=== PATIENT | female | born 1970 ===

== ENCOUNTER 2017-07-30 17:27 | Observation (INO) | payer SELFPAY ==
--- NOTE | 2017-07-30 17:45 | ED PDOC ---
Arrival/HPI <Samuel Henderson - Last Filed: 07/30/17 18:59> <Rowan Chadwick - Last Filed: 07/30/17 19:06> - General Chief Complaint: Abdominal Pain Time Seen by Provider: 07/30/17 17:29 - History of Present Illness Narrative History of Present Illness (Text): Batsheva is a 46 year old female with a past medical history of nephrolithiasis who presents to the emergency room for evaluation and treatment of abdominal pain, nausea, and vomiting which began 1 hour ago with no specific provoking event. States the pain originated in the left and right lower quadrants and radiates to the pubis. Characterizes the pain as being sharp in nature and is rated a 10/10. Denies fever, chills, chest pain, shortness of breath, diarrhea, constipation, and urinary symptoms. 07/30/17 17:46 (Samuel Henderson) Past Medical History - Provider Review Nursing Documentation Reviewed: Yes - Travel History Have you recently traveled outside [place] w/in the past 3 mons?: No - Cardiac Hx Cardiac Disorders: No - Pulmonary Hx Respiratory Disorders: No - Neurological Hx Neurological Disorder: No - HEENT Hx HEENT Disorder: No - Renal Hx Kidney Stones: Yes - Endocrine/Metabolic Hx Endocrine Disorders: No - Hematological/Oncological Hx Blood Disorders: No - Integumentary Hx Dermatological Disorder: No - Musculoskeletal/Rheumatological Hx Musculoskeletal Disorders: No - Gastrointestinal Hx Gastrointestinal Disorders: No - Genitourinary/Gynecological Hx Genitourinary Disorders: No - Psychiatric Hx Psychophysiologic Disorder: No - Past Surgical History Past Surgical History: Non-Contributing <Samuel Henderson - Last Filed: 07/30/17 18:59> Family/Social History - Physician Review Nursing Documentation Reviewed: Yes Family/Social History: Unknown Family HX Smoking Status: Never Smoked Hx Alcohol Use: No Hx Substance Use: No <Samuel Henderson - Last Filed: 07/30/17 18:59> Allergies/Home Meds <Samuel Henderson - Last Filed: 07/30/17 18:59> <Rowan Chadwick - Last Filed: 07/30/17 19:06> Allergies/Adverse Reactions: Allergies No Known Allergies Allergy (Verified 07/30/17 17:54) Review of Systems - Physician Review All systems were reviewed & negative as marked: Yes - Review of Systems Constitutional: Normal Eyes: Normal ENT: Normal Respiratory: Normal Cardiovascular: Normal Gastrointestinal: Abdominal Pain (right lower and left lower quadrants), Nausea , Vomiting. absent: Diarrhea Genitourinary Female: Normal Musculoskeletal: Normal Skin: Normal Neurological: Normal Endocrine: Normal Hemo/Lymphatic: Normal Psychiatric: Normal <Samuel Henderson - Last Filed: 07/30/17 18:59> Physical Exam Vital Signs Reviewed: Yes Temperature: Afebrile Blood Pressure: Hypertensive Pulse: Regular Respiratory Rate: Normal Appearance: Positive for: Well-Appearing, Non-Toxic, Comfortable Pain Distress: None Mental Status: Positive for: Alert and Oriented X 3 - Systems Exam Head: Present: Atraumatic, Normocephalic Pupils: Present: PERRL Extroacular Muscles: Present: EOMI Conjunctiva: Present: Normal Mouth: Present: Moist Mucous Membranes Pharnyx: Present: Normal Nose (External): Present: Atraumatic Respiratory/Chest: Present: Clear to Auscultation Cardiovascular: Present: Regular Rate and Rhythm Abdomen: Present: Tenderness, Normal Bowel Sounds, Other (negative garcia's sign ). No: Distention, Peritoneal Signs, Rebound, Guarding, McBurney's Point Tender Upper Extremity: Present: Normal Inspection Lower Extremity: Present: Normal Inspection Neurological: Present: GCS=15, Speech Normal, Motor Func Grossly Intact, Normal Sensory Function, Normal Cerebellar Funct Skin: Present: Warm, Dry, Normal Color Psychiatric: Present: Alert, Oriented x 3, Normal Insight, Normal Concentration <Samuel Henderson - Last Filed: 07/30/17 18:59> Vital Signs Temp Pulse Resp BP Pulse Ox 07/30/17 17:35 98.0 F 90 18 160/91 H 95 Medical Decision Making <Samuel Henderson - Last Filed: 07/30/17 18:59> - Transfer of Care Patient signed out to Dr:: Ron Pending Radiology Studies:: CT abd/pelvis <Rowan Chadwick - Last Filed: 07/30/17 19:06> ED Course and Treatment: Assessment and Plan: Patent is a 46 year old female with a past medical history of nephrolithiasis who presents to the emergency room for evaluation and treatment of abdominal pain, nausea, and vomiting. Abdominal Pain Nausea/Vomiting 07/30/17 18:10 - CBC, CMP, Mag, Phos - Zofran - Toradol - CT abd/pelvis IV contrast - IVF NS 500cc bolus - UA - Hcg 07/30/17 18:59 - awaiting labs and imaging results - patient clinically improved- resting - patient case endorsed to swing shift attending (Samuel Henderson) - Lab Interpretations Lab Results: 07/30/17 18:24 Lab Results 07/30/17 18:24: WBC 8.9, RBC 4.51, Hgb 13.7, Hct 40.2, MCV 89.1, MCH 30.4, MCHC 34.1, RDW 13.0, Plt Count 196, MPV 10.8, Gran % 83.1 H, Lymph % (Auto) 13.6 L, [place] % (Auto) 2.7, Eos % (Auto) 0.4 L, Baso % (Auto) 0.2, Gran # 7.41 H, Lymph # (Auto) 1.2, [place] # (Auto) 0.2, Eos # (Auto) 0.0, Baso # (Auto) 0.02 - RAD Interpretation Radiology Orders: 07/30/17 17:55 ABD & PELVIS IV CONTRAST ONLY [CT] Stat - Medication Orders Current Medication Orders: Discontinued Medications Sodium Chloride (Sodium Chloride 0.9%) 500 mls @ 1,000 mls/hr IV .Q30M STA Stop: 07/30/17 18:23 Last Admin: 07/30/17 18:08 Dose: 1,000 mls/hr eMAR Start Stop Document 07/30/17 18:08 EQ (Rec: 07/30/17 18:[address] [id number]) Intravenous Solution Start Date 07/30/17 Start Time 18:08 Ketorolac Tromethamine (Toradol) 30 mg IVP STAT STA Stop: 07/30/17 17:55 Last Admin: 07/30/17 18:09 Dose: 30 mg MAR Pain Assessment Document 07/30/17 18:09 EQ (Rec: 07/30/17 18:[address] [id number] Pain Reassessment Is this a pain reassessment? No Sleep Is patient sleeping during reassessment? No Presence of Pain Presence of Pain Yes IVP Administration Document 07/30/17 18:09 EQ (Rec: 07/30/17 18:[address] [id number]) Charges for Administration # of IVP Administrations 1 Ondansetron HCl (Zofran Inj) 4 mg IVP STAT STA Stop: 07/30/17 17:55 Last Admin: 07/30/17 18:09 Dose: 4 mg IVP Administration Document 07/30/17 18:09 EQ (Rec: 07/30/17 18:09 [email or web address] Charges for Administration # of IVP Administrations 1 Disposition/Present on Arrival - Present on Arrival Any Indicators Present on Arrival: No - Disposition Have Diagnosis and Disposition been Completed?: No Disposition Time: 19:00 <Samuel Henderson - Last Filed: 07/30/17 18:59> <Rowan Chadwick - Last Filed: 07/30/17 19:06> - Disposition Diagnosis: Abdominal pain Condition: FAIR Forms: [employer] ([place]ian)
[2017-07-30] MEDS ORDERED: Sodium Chloride 0.9% 500 ML IV STA (17:54)
[2017-07-30] MEDS ORDERED: Iohexol 350 MG/100 ML VIAL ONE (18:05)
[2017-07-30 18:44] LABS: BASO # 0.02 K/mm3 (0.0-2.0); BASO % 0.2 % (0.0-3.0); EOS % 0.4 % (1.5-5.0); GRAN # 7.41 (1.4-6.5); GRAN % 83.1 % (50.0-68.0); HEMOGLOBIN 13.7 g/dL (12.0-16.0); LYMPH # 1.2 (1.2-3.4); LYMPH % 13.6 % (22.0-35.0); MEAN CELL VOLUME 89.1 fl (80.0-105.0); MEAN CORPUSCULAR HEMOGLOBIN 30.4 pg (25.0-35.0); MEAN CORPUSCULAR HGB CONC 34.1 g/dl (31.0-37.0); MEAN PLATELET VOLUME 10.8 fl (7.0-11.0); MONO # 0.2 (0.1-0.6); MONO % 2.7 % (1.0-6.0); RBC 4.51 10^6/uL (3.5-6.1); WHITE BLOOD COUNT 8.9 10^3/ul (4.5-11.0)
[2017-07-30 18:57] LABS: URINE BILIRUBIN NEGATIVE (NEGATIVE); URINE BLOOD LARGE (NEGATIVE); URINE GLUCOSE (UA) NEGATIVE (NEGATIVE); URINE LEUKOCYTE ESTERASE NEGATIVE Leu/uL (NEGATIVE); URINE PROTEIN TRACE mg/dL (<30 mg/dL)
[2017-07-30 19:07] LABS: URINE COLOR YELLOW (YELLOW)
[2017-07-30 19:08] LABS: ALB/GLOB RATIO 1.2 (1.1-1.8); ALBUMIN 4.6 g/dL (3.0-4.8); ALT/SGPT 42 U/L (7-56); AST/SGOT 41 U/L (14-36); BLOOD UREA NITROGEN 12 mg/dL (7-21); CALCIUM 9.1 mg/dL (8.4-10.5); GFR NON-AFRICAN AMERICAN > 60; LIPASE 69 U/L (23-300)
[2017-07-30 19:08] LABS: URINE APPEARANCE SL CLOUDY (CLEAR)
[2017-07-30 19:17] LABS: URINE BACTERIA MANY (NEG); URINE CALCIUM OXALATE CRYSTALS SMALL /hpf; URINE RBC TNTC /hpf (0-2)
[2017-07-30 19:18] LABS: HCG,QUALITATIVE URINE NEGATIVE (NEGATIVE)
--- NOTE | 2017-07-30 19:24 | ED PDOC ---
Physical Exam Vital Signs Reviewed: Yes Temperature: Afebrile Blood Pressure: Hypertensive Pulse: Regular Respiratory Rate: Normal Appearance: Positive for: Non-Toxic Pain Distress: Mild Mental Status: Positive for: Alert and Oriented X 3 - Systems Exam Head: Present: Atraumatic, Normocephalic Pupils: Present: PERRL Extroacular Muscles: Present: EOMI Conjunctiva: Present: Normal Mouth: Present: Moist Mucous Membranes Neck: Present: Normal Range of Motion Respiratory/Chest: Present: Clear to Auscultation. No: Wheezes, Rales, Rhonchi Cardiovascular: Present: Regular Rate and Rhythm, Normal S1, S2. No: Murmurs, Rub, Gallop, Muffled Abdomen: Present: Tenderness (RLQ/LLQ). No: Distention, Rebound, Guarding Back: No: CVA Tenderness Upper Extremity: Present: Normal Inspection Lower Extremity: Present: Normal Inspection Neurological: Present: GCS=15, CN II-XII Intact, Speech Normal Skin: Present: Warm, Dry, Normal Color. No: Rashes Psychiatric: Present: Alert, Oriented x 3, Normal Insight, Normal Concentration <Mart Kerr - Last Filed: 07/30/17 21:04> Vital Signs Temp Pulse Resp BP Pulse Ox 07/30/17 19:51 75 18 143/86 98 07/30/17 17:35 98.0 F 90 18 160/91 H 95 Medical Decision Making <Vinay Garcia - Last Filed: 07/30/17 21:01> Reassessment Condition: Re-examined, Unchanged - Lab Interpretations I have reviewed the lab results: Yes <Mart Kerr - Last Filed: 07/30/17 21:04> ED Course and Treatment: Patient Seen With Resident: In agreement with resident note which contains more details about the patient. Patient was seen and evaluated with resident. Came up with plan and treatment together. (Vinay Garcia) 07/30/17 19:22 Patient with history of nephrolithiasis was endorsed by Dr. Chadwick and Dr. Henderson. Patient is pending CT scan of the abdomen and pelvis. Patient was examined at bedside. Patient states that pain is improved with toradol. Patient feels as if there is something "stuck" in her groin. - Flomax ordered - Reassess and disposition 07/30/17 20:24 Pain reassessed currently 09/22 (11/22 on arrival) - Morphine [address] abdomen/pelvis IMPRESSION: 1. Abnormal gallbladder with slightly thickened enhancing wall particularly in the fundal area, as well as the gallbladder neck. Gallbladder adenomyomatosis or carcinoma could be considered. Follow-up or further evaluation for this finding at local radiologist's discretion. 2. Mild right hydronephrosis and slightly delayed function, as well as mild perinephric stranding. There is an obstructing stone measuring 5-6 mm in the right ureterovesical junction, image 28 series 2. 3. Colonic diverticulosis. No diverticulitis 07/30/17 20:[address] Alfonso, who agrees with plan and accepts patient under hospitalist service. Installation Drafter, Dr. Sheppard, made aware. Patient will be admitted to med/surg. (Mart Kerr) - Lab Interpretations Lab Results: 07/30/17 18:24 07/30/17 18:24 Lab Results 07/30/17 18:24: Sodium 147, Potassium 3.5 L, Chloride 105, Carbon Dioxide 29, Anion Gap 16, BUN 12, Creatinine 0.7, Est GFR ( Amer) > 60, Est GFR (Non- Af Amer) > 60, Random Glucose 129 H, Calcium 9.1, Magnesium 2.1, Total Bilirubin 0.9, AST 41 H, ALT 42, Alkaline Phosphatase 120, Total Protein 8.5 H, Albumin 4.6, Globulin 3.9, Albumin/Globulin Ratio 1.2, Lipase 69 07/30/17 18:24: WBC 8.9, RBC 4.51, Hgb 13.7, Hct 40.2, MCV 89.1, MCH 30.4, MCHC 34.1, RDW 13.0, Plt Count 196, MPV 10.8, Gran % 83.1 H, Lymph % (Auto) 13.6 L, [place] % (Auto) 2.7, Eos % (Auto) 0.4 L, Baso % (Auto) 0.2, Gran # 7.41 H, Lymph # (Auto) 1.2, [place] # (Auto) 0.2, Eos # (Auto) 0.0, Baso # (Auto) 0.02 07/30/17 18:12: Urine Color Yellow, Urine Appearance Sl cloudy, Urine pH 6.0, Ur Specific [place] >= 1.030, Urine Protein Trace H, Urine Glucose (UA) Negative , Urine Ketones Trace H, Urine Blood Large H, Urine Nitrate Negative, Urine Bilirubin Negative, Urine Urobilinogen 1.0 H, Ur Leukocyte Esterase Negative, Urine RBC Tntc, Urine WBC 5 - 10, Ur Epithelial Cells 4 - 5, Calcium Oxalate Crystal Small, Urine Bacteria Many, Urine Other Fiber, Urine HCG, Qual Negative - RAD Interpretation Radiology Orders: 07/30/17 17:55 ABD & PELVIS IV CONTRAST ONLY [CT] Stat - Medication Orders Current Medication Orders: Discontinued Medications Sodium Chloride (Sodium Chloride 0.9%) 500 mls @ 1,000 mls/hr IV .Q30M STA Stop: 07/30/17 18:23 Last Admin: 07/30/17 18:08 Dose: 1,000 mls/hr eMAR Start Stop Document 07/30/17 18:08 EQ (Rec: 07/30/17 18:08 EQ [id number] Intravenous Solution Start Date 07/30/17 Start Time 18:08 Ketorolac Tromethamine (Toradol) 30 mg IVP STAT STA Stop: 07/30/17 17:55 Last Admin: 07/30/17 18:09 Dose: 30 mg MAR Pain Assessment Document 07/30/17 18:09 EQ (Rec: 07/30/17 18:09 EQ [email or web address] Pain Reassessment Is this a pain reassessment? No Sleep Is patient sleeping during reassessment? No Presence of Pain Presence of Pain Yes IVP Administration Document 07/30/17 18:09 EQ (Rec: 07/30/17 18:09 EQ [email or web address] Charges for Administration # of IVP Administrations 1 Morphine Sulfate (Morphine) 4 mg IVP STAT STA Stop: 07/30/17 20:11 Last Admin: 07/30/17 20:22 Dose: 4 mg MAR Pain Assessment Document 07/30/17 20:22 EQ (Rec: 07/30/17 20:23 EQ [email or web address] Pain Reassessment Is this a pain reassessment? No Sleep Is patient sleeping during reassessment? No Presence of Pain Presence of Pain Yes IVP Administration Document 07/30/17 20:22 EQ (Rec: 07/30/17 20:23 EQ [email or web address] Charges for Administration # of IVP Administrations 1 Ondansetron HCl (Zofran Inj) 4 mg IVP STAT STA Stop: 07/30/17 17:55 Last Admin: 07/30/17 18:09 Dose: 4 mg IVP Administration Document 07/30/17 18:09 EQ (Rec: 07/30/17 18:09 EQ [email or web address] Charges for Administration # of IVP Administrations 1 Tamsulosin HCl (Flomax) 0.4 mg PO STAT STA Stop: 07/30/17 19:18 Last Admin: 07/30/17 20:23 Dose: 0.4 mg - PA / [employer] / Resident Statement / has reviewed & agrees with the documentation as recorded. / has examined the patient and agrees with the treatment plan. <Vinay Garcia - Last Filed: 07/30/17 21:01> Disposition/Present on Arrival - Present on Arrival Any Indicators Present on Arrival: No History of DVT/PE: No History of Uncontrolled Diabetes: No Urinary Catheter: No History of Decub. Ulcer: No History Surgical Site Infection Following: None - Disposition Have Diagnosis and Disposition been Completed?: Yes Disposition Time: 20:53 Patient Plan: Observation <Vinay Garcia - Last Filed: 07/30/17 21:01> - Present on Arrival Any Indicators Present on Arrival: No History of DVT/PE: No History of Uncontrolled Diabetes: No Urinary Catheter: No History of Decub. Ulcer: No History Surgical Site Infection Following: None <Mart Kerr - Last Filed: 07/30/17 21:04> - Disposition Diagnosis: Renal colic, Intractable pain Disposition: HOSPITALIZED Patient Problems: Current Active Problems Problem Status Onset Renal colic Acute Intractable pain Acute Condition: FAIR
[2017-07-30] MEDS ORDERED: Morphine 4 mg/ml ISec IVP STA (20:10)
[2017-07-30] MEDS ORDERED: Sodium Chloride 0.9% 1,000 ML IV SCH (21:15)
--- NOTE | 2017-07-30 21:16 | CP.PCM.HP ---
<Jose Sheppard - Last Filed: 07/31/17 09:07> History of Present Illness - History of Present Illness History of Present Illness: 46 year old female with a past medical history of nephrolithiasis comes in to the emergency department complaining of nausea and vomiting that started earlier this morning. She reports the pain started in the right and left lower quadrants and radiated to the pubic area. She reports having similar pain like this about 2 years ago when they found her stone. She described the pain as sharp in nature and rates it an 8 or 9/10 in severity. She denies any alleviating or modifying factors. She denies any chest pain, shortness of breath , fevers, chills, changes in vision, syncopal episodes, headaches, or any other complaints. PMD: None Past medical history: nephrolithiasis Past surgical history: Removal of kidney stone 2016 Allergies: Denies Medications: Denies taking any medications at home Social history: Social drinker. Denies smoking or illicit drug use. Present on Admission - Present on Admission Any Indicators Present on Admission: No Review of Systems - Constitutional Constitutional: absent: Chills, Daytime Sleepiness, Headache, Snoring - EENT Eyes: absent: Blurred Vision, Loss of Peripheral Vision, Requires Corrective Lenses, Other Visual Disturbances, Loss of Vision Ears: absent: Ear Discharge, Dizziness Nose/Mouth/Throat: absent: Nasal Congestion, Nose Pain, Bleeding Gums, Dysphagia , Mouth Pain, Facial Pain - Cardiovascular Cardiovascular: absent: Chest Pain, Claudication, Leg Edema, Pedal Edema, Syncope - Respiratory Respiratory: absent: Cough, Dyspnea, Hemoptysis, Snoring, Change in Mucous Color - Gastrointestinal Gastrointestinal: Nausea, Vomiting. absent: Abdominal Pain, Belching, Bloating , Cramping, Diarrhea, Dyspepsia, Dysphagia, Excessive Flatus, Heartburn, Hematochezia, Loose Stools - Genitourinary Genitourinary: absent: Change in Urinary Stream, Pyuria, Nocturia, Urinary Hesitance, Urinary Urgency, Freq UTI, Bladder Distension - Musculoskeletal Musculoskeletal: absent: Abnormal Gait, Arthralgias, Limited Range of Motion, Muscle Weakness, Myalgias, Stiffness, Tingling - Neurological Neurological: absent: Abnormal Hearing, Behavioral Changes, Disequilibrium, Dizziness, Headaches, Lack of Coordination, Radicular Pain, Syncope, Tingling - Psychiatric Psychiatric: absent: Abnormal Sleep Pattern, Behavioral Changes, Depression, Hopelessness, Panic Attacks, Tactile Hallucinations - Endocrine Endocrine: absent: Change in Body Appearance, Deepening of Voice, Increase in Ring/Shoe/Hat Size, Polydipsia, Polyphagia, Polyuria - Hematologic/Lymphatic Hematologic: absent: As Per HPI, Easy Bleeding, Easy Bruising Past Patient History - Past Social History Smoking Status: Never Smoked - CARDIAC Hx Cardiac Disorders: No - PULMONARY Hx Respiratory Disorders: No - NEUROLOGICAL Hx Neurological Disorder: No - HEENT Hx HEENT Problems: No - RENAL Hx Kidney Stones: Yes - ENDOCRINE/METABOLIC Hx Endocrine Disorders: No - HEMATOLOGICAL/ONCOLOGICAL Hx Blood Disorders: No - INTEGUMENTARY Hx Dermatological Problems: No - MUSCULOSKELETAL/RHEUMATOLOGICAL Hx Musculoskeletal Disorders: No - GASTROINTESTINAL Hx Gastrointestinal Disorders: No - GENITOURINARY/GYNECOLOGICAL Hx Genitourinary Disorders: No - PSYCHIATRIC Hx Psychophysiologic Disorder: No Hx Substance Use: No - SURGICAL HISTORY Hx Surgeries: No - ANESTHESIA Hx Anesthesia: No Hx Anesthesia Reactions: No Hx Malignant Hyperthermia: No Meds Allergies/Adverse Reactions: Allergies Allergy/AdvReac Type Severity Reaction Status Date / Time No Known Allergies Allergy Verified 07/30/17 17:54 Physical Exam - Head Exam Head Exam: ATRAUMATIC, NORMAL INSPECTION, NORMOCEPHALIC - Eye Exam Eye Exam: EOMI, Normal appearance, PERRL Pupil Exam: NORMAL ACCOMODATION - ENT Exam ENT Exam: Mucous Membranes Moist, Normal Oropharynx - Neck Exam Neck exam: Positive for: Normal Inspection. Negative for: Lymphadenopathy, Thyromegaly - Respiratory Exam Respiratory Exam: Clear to Auscultation Bilateral, NORMAL BREATHING PATTERN. absent: Chest Wall Tenderness, Prolonged Expiratory Phase, Respiratory Distress - Cardiovascular Exam Cardiovascular Exam: REGULAR RHYTHM, +S1, +S2 - GI/Abdominal Exam GI & Abdominal Exam: Normal Bowel Sounds, Soft - Extremities Exam Extremities exam: Positive for: normal inspection. Negative for: full ROM, joint swelling, pedal edema - Back Exam Back exam: CVA tenderness (L), NORMAL INSPECTION. absent: paraspinal tenderness , rash noted - Neurological Exam Neurological exam: Alert, CN II-XII Intact, Oriented x3 - Psychiatric Exam Psychiatric exam: Normal Affect, Normal Mood - Skin Skin Exam: Dry, Intact Results - Vital Signs Recent Vital Signs: Last Vital Signs Temp 98.0 F 07/30/17 17:35 Pulse 72 07/30/17 21:05 Resp 17 07/30/17 21:05 BP 121/75 07/30/17 21:05 Pulse Ox 99 07/30/17 21:05 - Labs Result Diagrams: 07/30/17 18:24 07/30/17 18:24 Assessment & Plan - Assessment and Plan (Free Text) Assessment: 46 year old female with a past medical history of nephrolithiasis being admitted for renal colic. Plan: 1. Nephrolithiais -Ab/pelvis ct shows obstructing stone 5-6 mm in right uterovesical junction and mild right hydronephrosis -Morphine for pain control -Urology consulted. Help appreciated. -NPO -IV fluidis PPX -Protonix -Heparin Plan discussed with Dr. Kaden Sheppard, PGY-1 <Galdino Alfonso - Last Filed: 08/03/17 19:17> Results - Vital Signs Recent Vital Signs: Last Vital Signs Temp 98.4 F 08/01/17 06:00 Pulse 64 08/01/17 06:00 Resp 16 08/01/17 06:00 BP 108/70 08/01/17 06:00 Pulse Ox 98 08/01/17 06:00 - Labs Result Diagrams: 08/01/17 05:45 08/01/17 05:45 Attending/Attestation - Attestation I have personally seen and examined this patient.: Yes I have fully participated in the care of the patient.: Yes I have reviewed all pertinent clinical information: Yes
[2017-07-30] MEDS ORDERED: Morphine 2 mg/2 mL syringe IVP PRN (21:26)
[2017-07-31] MEDS ORDERED: Potassium Chloride 20 mEq ER Tab PO STA (02:04)
[2017-07-31] MEDS: Sodium Chloride 0.9% 1,000 ML IV SCH (02:51)
[2017-07-31 07:05] LABS: BASO # 0.02 K/mm3 (0.0-2.0); BASO % 0.3 % (0.0-3.0); EOS % 0.1 % (1.5-5.0); GRAN # 5.6 (1.4-6.5); GRAN % 71.9 % (50.0-68.0); LYMPH # 1.6 (1.2-3.4); LYMPH % 20.1 % (22.0-35.0); MEAN CELL VOLUME 89.2 fl (80.0-105.0); MEAN CORPUSCULAR HEMOGLOBIN 29.5 pg (25.0-35.0); MEAN CORPUSCULAR HGB CONC 33.1 g/dl (31.0-37.0); MEAN PLATELET VOLUME 10.6 fl (7.0-11.0); MONO # 0.6 (0.1-0.6); MONO % 7.6 % (1.0-6.0); RBC 4.07 10^6/uL (3.5-6.1); RED CELL DISTRIBUTION WIDTH 13.4 % (11.5-14.5); WHITE BLOOD COUNT 7.8 10^3/ul (4.5-11.0)
[2017-07-31 07:30] LABS: BLOOD UREA NITROGEN 12 mg/dL (7-21); GFR NON-AFRICAN AMERICAN > 60
[2017-07-31 07:31] LABS: ALB/GLOB RATIO 1.1 (1.1-1.8); ALBUMIN 3.7 g/dL (3.0-4.8); ALT/SGPT 50 U/L (7-56); AST/SGOT 53 U/L (14-36); CALCIUM 8.7 mg/dL (8.4-10.5)
--- NOTE | 2017-07-31 08:17 | CT ---
PROCEDURE: CT Abdomen and Pelvis with contrast HISTORY: abdominal pain COMPARISON: None. TECHNIQUE: Contrast dose: 100 cc of Omnipaque Radiation dose: Total exam DLP = 459 mGy-cm. This CT exam was performed using one or more of the following dose reduction techniques: Automated exposure control, adjustment of the mA and/or kV according to patient size, and/or use of iterative reconstruction technique. FINDINGS: LOWER THORAX: Unremarkable. LIVER: Unremarkable. No gross lesion or ductal dilatation. GALLBLADDER AND BILE DUCTS: Gallbladder wall thickening and nodularity suspicious for polyposis. Recommend correlation with gallbladder ultrasound. . PANCREAS: Unremarkable. No gross lesion or ductal dilatation. SPLEEN: Unremarkable. ADRENALS: Unremarkable. No mass. KIDNEYS AND URETERS: Three millimeter calculus at the right UVJ with mild hydroureter and mild right hydronephrosis. No renal mass. VASCULATURE: Unremarkable. No aortic aneurysm. BOWEL: Unremarkable. No obstruction. No gross mural thickening. APPENDIX: Normal appendix. PERITONEUM: Unremarkable. No free fluid. No free air. LYMPH NODES: Unremarkable. No enlarged lymph nodes. BLADDER: Unremarkable. REPRODUCTIVE: Unremarkable. BONES: No acute fracture. OTHER FINDINGS: None. IMPRESSION: 3 mm calculus at the right UVJ with mild hydroureter and mild right hydronephrosis. No renal mass. Gallbladder wall thickening and nodularity suspicious for polyposis. Recommend correlation with gallbladder ultrasound. .
[2017-07-31] MEDS ORDERED: Iohexol 240 (50 ml) ONE (14:15)
[2017-07-31] MEDS ORDERED: cefTRIAXone (Rocephin) 1 gm Inj ONE (14:15)
[2017-07-31] MEDS ORDERED: Propofol 10 mg/ml Inj (20 ML) ONE (14:22)
[2017-07-31] MEDS ORDERED: HYDROmorphone 0.5 mg/0.5 ml ISec IVP PRN (14:56)
[2017-07-31] MEDS ORDERED: Lactated Ringer's 1,000 ML IV SCH (15:00)
[2017-07-31] MEDS ORDERED: cefTRIAXone 1 gm 1 GM/100 ML BAG IVPB STA (15:19)
[2017-07-31] MEDS ORDERED: ePHEDrine 50 mg/ml Inj ONE (15:22)
--- NOTE | 2017-07-31 15:29 | CP.PCM.PN ---
<Mart Cortez - Last Filed: 08/01/17 12:32> Subjective - Date & Time of Evaluation Date of Evaluation: 07/31/17 Time of Evaluation: 15:24 - Subjective Subjective: Patient seen and examined this AM. No acute events reported since admission and transfer to floors. Patient complains of right sided abdominal pain with worsening pain in the right suprapubic region. Patient to go for cystoscopy today. Objective - Vital Signs/Intake and Output Vital Signs (last 24 hours): Temp Pulse Resp BP Pulse Ox 98.7 F 64 18 111/69 99 07/31/17 15:05 07/31/17 15:05 07/31/17 15:05 07/31/17 15:05 07/31/17 15:05 Intake and Output: 07/31/17 07/31/17 06:59 18:59 Intake Total 0 0 Balance 0 0 - Medications Medications: Current Medications Heparin Sodium (Porcine) (Heparin) 5,000 units SC Q12 DANIEL PRN Reason: Protocol Last Admin: 07/31/17 10:53 Dose: 5,000 units Hydromorphone HCl (Dilaudid) 0.5 mg IVP Q15M PRN PRN Reason: Pain, moderate (4-7) Stop: 07/31/17 16:56 Sodium Chloride (Sodium Chloride 0.9%) 1,000 mls @ 150 mls/hr IV .Q6H40M [facility] Last Admin: 07/31/17 02:51 Dose: 150 mls/hr Lactated Ringer's (Lactated Ringer's) 1,000 mls @ 75 mls/hr IV .[id number] [facility] Stop: 07/31/17 17:01 Ceftriaxone Sodium (Rocephin 1 Gram Ivpb) 1 gm in 100 mls @ 200 mls/hr IVPB STAT STA PRN Reason: Protocol Stop: 07/31/17 15:48 Morphine Sulfate (Morphine) 2 mg IVP Q6H PRN PRN Reason: Pain, severe (8-10) Last Admin: 07/31/17 02:52 Dose: 2 mg Ondansetron HCl (Zofran Inj) 4 mg IVP Q6 PRN PRN Reason: Nausea/Vomiting Last Admin: 07/31/17 03:10 Dose: 4 mg Oxycodone/Acetaminophen (Percocet 5/325 Mg Tab) 1 tab PO Q6H PRN PRN Reason: Bladder Spasm Stop: 08/03/17 15:19 Pantoprazole Sodium (Protonix Inj) 40 mg IVP DAILY DANIEL Last Admin: 07/31/17 10:54 Dose: 40 mg Phenazopyridine HCl (Pyridium) 200 mg PO STAT STA Stop: 07/31/17 15:19 - Labs Labs: 07/31/17 06:00 07/31/17 06:00 - Constitutional Appears: No Acute Distress - Head Exam Head Exam: ATRAUMATIC, NORMAL INSPECTION, NORMOCEPHALIC - Eye Exam Eye Exam: EOMI, PERRL - ENT Exam ENT Exam: Mucous Membranes Moist - Neck Exam Neck Exam: Full ROM - Respiratory Exam Respiratory Exam: Clear to Ausculation Bilateral, NORMAL BREATHING PATTERN. absent: Rhonchi, Wheezes - Cardiovascular Exam Cardiovascular Exam: REGULAR RHYTHM, +S1, +S2 - GI/Abdominal Exam GI & Abdominal Exam: Soft, Tenderness (right lower quadrant) - Extremities Exam Extremities Exam: Normal Capillary Refill. absent: Pedal Edema - Back Exam Back Exam: absent: CVA tenderness (L), CVA tenderness (R), paraspinal tenderness - Neurological Exam Neurological Exam: Alert, Awake, Normal Gait, Oriented x3 Neuro motor strength exam: Left Upper Extremity: 5, Right Upper Extremity: 5, Left Lower Extremity: 5, Right Lower Extremity: 5 - Psychiatric Exam Psychiatric exam: Normal Affect, Normal Mood - Skin Skin Exam: Dry, Warm Assessment and Plan - Assessment and Plan (Free Text) Assessment: 46 year old female with past medical history of nephrolithiasis who is admitted for right sided renal colic and abdominal/pelivis CT evidence of 3 mm obstructing stone at the right UVJ junction. Urology consulted and patient to undergo cystoscopy today Plan: 1. Nephrolithiasis with mild right hydronephrosis - UA showing calcium oxalate stone measuring 3 mm by abd/pelvis CT - Urology consulted, appreciate recs - Cystoscopy today, f/u results - IV fluids - Morphine for pain control GI/DVT ppx - Protonix - Heparin Case and plan discussed with attending <Millicent Carter - Last Filed: 08/01/17 15:55> Objective - Vital Signs/Intake and Output Vital Signs (last 24 hours): Temp Pulse Resp BP Pulse Ox 98.4 F 64 16 108/70 98 08/01/17 06:00 08/01/17 06:00 08/01/17 06:00 08/01/17 06:00 08/01/17 06:00 Intake and Output: 08/01/17 08/01/17 06:59 18:59 Intake Total 2220 Balance 2220 - Medications Medications: Current Medications Heparin Sodium (Porcine) (Heparin) 5,000 units SC Q12 DANIEL PRN Reason: Protocol Last Admin: 07/31/17 10:53 Dose: 5,000 units Sodium Chloride (Sodium Chloride 0.9%) 1,000 mls @ 150 mls/hr IV .Q6H40M [facility] Last Admin: 08/01/17 00:19 Dose: 150 mls/hr Morphine Sulfate (Morphine) 2 mg IVP Q6H PRN PRN Reason: Pain, severe (8-10) Last Admin: 07/31/17 02:52 Dose: 2 mg Ondansetron HCl (Zofran Inj) 4 mg IVP Q6 PRN PRN Reason: Nausea/Vomiting Last Admin: 07/31/17 18:53 Dose: 4 mg Oxycodone/Acetaminophen (Percocet 5/325 Mg Tab) 1 tab PO Q6H PRN PRN Reason: Bladder Spasm Stop: 08/03/17 15:19 Last Admin: 08/01/17 09:46 Dose: 1 tab Pantoprazole Sodium (Protonix Inj) 40 mg IVP DAILY [facility] Last Admin: 08/01/17 09:36 Dose: 40 mg - Labs Labs: 08/01/17 05:45 08/01/17 05:45 Attending/Attestation - Attestation I have personally seen and examined this patient.: Yes I have fully participated in the care of the patient.: Yes I have reviewed all pertinent clinical information, including history, physical exam and plan: Yes Notes (Text): 08/01/17 15:54 Medical record note made by the resident after discussion with my direction and input after the patient was personally seen and examined by me. I have reviewed the chart and agree that the record accurately reflects by personal performance of the history, physical exam, data review, and medical decision-making, in the course for the patient. I have also personally directed the plan of care.
[2017-07-31] MEDS: Oxycodone/Acetaminophen 5/325 mg Tab PO PRN (16:26)
--- NOTE | 2017-07-31 17:07 | CARD ---
APPROVED REPORT EKG Measurement Heart [id number] <Conclusion> Normal sinus rhythm Normal ECG
[2017-07-31 17:11] VITALS: O2SAT 98
[2017-08-01] MEDS: Sodium Chloride 0.9% 1,000 ML IV SCH (00:19)
[2017-08-01 06:34] LABS: BASO # 0.02 K/mm3 (0.0-2.0); BASO % 0.4 % (0.0-3.0); EOS # 0.1 (0.0-0.7); GRAN # 2.52 (1.4-6.5); GRAN % 49.3 % (50.0-68.0); HEMOGLOBIN 11.3 g/dL (12.0-16.0); LYMPH # 2.1 (1.2-3.4); LYMPH % 41.6 % (22.0-35.0); MEAN CELL VOLUME 90.4 fl (80.0-105.0); MEAN CORPUSCULAR HEMOGLOBIN 29.4 pg (25.0-35.0); MEAN CORPUSCULAR HGB CONC 32.6 g/dl (31.0-37.0); MEAN PLATELET VOLUME 10.8 fl (7.0-11.0); MONO # 0.3 (0.1-0.6); MONO % 6.7 % (1.0-6.0); RBC 3.84 10^6/uL (3.5-6.1); RED CELL DISTRIBUTION WIDTH 13.6 % (11.5-14.5); WHITE BLOOD COUNT 5.1 10^3/ul (4.5-11.0)
[2017-08-01 07:22] LABS: ALBUMIN 3.4 g/dL (3.0-4.8); ALT/SGPT 59 U/L (7-56); AST/SGOT 62 U/L (14-36); BLOOD UREA NITROGEN 9 mg/dL (7-21); CALCIUM 8.3 mg/dL (8.4-10.5); GFR NON-AFRICAN AMERICAN > 60
--- NOTE | 2017-08-01 09:31 | RAD ---
PROCEDURE: Retrograde pyelogram HISTORY: RETROGRADE PYELOGRAM / STENT INSERTION (RIGHT) COMPARISON: TECHNIQUE: 1.9 seconds fluoro time. Cumulative dose 2.71 mGy. Seven images submitted FINDINGS: There is placement of a right-sided ureteral stent. IMPRESSION: As above
[2017-08-01 09:32] VITALS: BP 108/70; PULSE 64; RESP 16; TEMP 98.4
[2017-08-01] MEDS: Oxycodone/Acetaminophen 5/325 mg Tab PO PRN (09:46)
--- NOTE | 2017-08-01 20:55 | CP.PCM.DIS ---
<WalteropheliaMart - Last Filed: 08/01/17 20:55> Provider - Provider Date of Admission: 07/30/17 20:47 Attending physician: Millicent Carter MD Primary care physician: NO PRIMARY CARE PROVIDER Consults: Urology: Dr. Reyes Time Spent in preparation of Discharge (in minutes): 35 Diagnosis - Discharge Diagnosis (1) Intractable pain Status: Resolved (2) Renal colic Status: Resolved Hospital Course - Lab Results Lab Results: Micro Results 07/30/17 21:13 Urine,Clean Catch Urine Culture - Final No Growth (<1,000 CFU/ML) Most Recent Lab Values WBC 5.1 10^3/ul (4.5-11.0) D 08/01/17 05:45 RBC 3.84 10^6/uL (3.5-6.1) 08/01/17 05:45 Hgb 11.3 g/dL (12.0-16.0) L 08/01/17 05:45 Hct 34.7 % (36.0-48.0) L 08/01/17 05:45 MCV 90.4 fl (80.0-105.0) 08/01/17 05:45 MCH 29.4 pg (25.0-35.0) 08/01/17 05:45 MCHC 32.6 g/dl (31.0-37.0) 08/01/17 05:45 RDW 13.6 % (11.5-14.5) 08/01/17 05:45 Plt Count 168 10^3/uL (120.0-450.0) 08/01/17 05:45 MPV 10.8 fl (7.0-11.0) 08/01/17 05:45 Gran % 49.3 % (50.0-68.0) L 08/01/17 05:45 Lymph % (Auto) 41.6 % (22.0-35.0) H 08/01/17 05:45 Tripp % (Auto) 6.7 % (1.0-6.0) H 08/01/17 05:45 Eos % (Auto) 2.0 % (1.5-5.0) 08/01/17 05:45 Baso % (Auto) 0.4 % (0.0-3.0) 08/01/17 05:45 Gran # 2.52 (1.4-6.5) 08/01/17 05:45 Lymph # (Auto) 2.1 (1.2-3.4) 08/01/17 05:45 Tripp # (Auto) 0.3 (0.1-0.6) 08/01/17 05:45 Eos # (Auto) 0.1 (0.0-0.7) 08/01/17 05:45 Baso # (Auto) 0.02 K/mm3 (0.0-2.0) 08/01/17 05:45 Sodium 145 mmol/L (132-148) 08/01/17 05:45 Potassium 3.7 mmol/L (3.6-5.0) 08/01/17 05:45 Chloride 108 mmol/L (98-107) H 08/01/17 05:45 Carbon Dioxide 27 mmol/L (21-33) 08/01/17 05:45 Anion Gap 14 (10-20) 08/01/17 05:45 BUN 9 mg/dL (7-21) 08/01/17 05:45 Creatinine 0.6 mg/dl (0.7-1.2) L 08/01/17 05:45 Est GFR ( Amer) > 60 08/01/17 05:45 Est GFR (Non-Af Amer) > 60 08/01/17 05:45 Random Glucose 93 mg/dL (70-110) 08/01/17 05:45 Calcium 8.3 mg/dL (8.4-10.5) L 08/01/17 05:45 Magnesium 2.1 mg/dL (1.7-2.2) 07/30/17 18:24 Total Bilirubin 1.1 mg/dL (0.2-1.3) 08/01/17 05:45 AST 62 U/L (14-36) H 08/01/17 05:45 ALT 59 U/L (7-56) H 08/01/17 05:45 Alkaline Phosphatase 89 U/L (38-126) 08/01/17 05:45 Total Protein 6.7 g/dL (5.8-8.3) 08/01/17 05:45 Albumin 3.4 g/dL (3.0-4.8) 08/01/17 05:45 Globulin 3.3 gm/dL 08/01/17 05:45 Albumin/Globulin Ratio 1.0 (1.1-1.8) L 08/01/17 05:45 Lipase 69 U/L (23-300) 07/30/17 18:24 Urine Color Yellow (YELLOW) 07/30/17 18:12 Urine Appearance Sl cloudy (CLEAR) 07/30/17 18:12 Urine pH 6.0 (4.7-8.0) 07/30/17 18:12 Ur Specific [place] >= 1.030 (1.005-1.035) 07/30/17 18:12 Urine Protein Trace mg/dL (<30 mg/dL) H 07/30/17 18:12 Urine Glucose (UA) Negative mg/dL (NEGATIVE) 07/30/17 18:12 Urine Ketones Trace mg/dL (NEGATIVE) H 07/30/17 18:12 Urine Blood Large (NEGATIVE) H 07/30/17 18:12 Urine Nitrate Negative (NEGATIVE) 07/30/17 18:12 Urine Bilirubin Negative (NEGATIVE) 07/30/17 18:12 Urine Urobilinogen 1.0 E.U./dL (<1 E.U./dL) H 07/30/17 18:12 Ur Leukocyte Esterase Negative Agustin/uL (NEGATIVE) 07/30/17 18:12 Urine RBC Tntc /hpf (0-2) 07/30/17 18:12 Urine WBC 5 - 10 /hpf (0-6) 07/30/17 18:12 Ur Epithelial Cells 4 - 5 /hpf (0-5) 07/30/17 18:12 Calcium Oxalate Crystal Small /hpf 07/30/17 18:12 Urine Bacteria Many (NEG) 07/30/17 18:12 Urine Other Fiber 07/30/17 18:12 Urine HCG, Qual Negative (NEGATIVE) 07/30/17 18:12 - Hospital Course Hospital Course: Patient is a 46 year old female with past medical history of nephrolithiasis with previous cystoscopy with stone removal in 2016 who presented to [facility] – [place] Emergency department complaining of right sided abdominal and flank pain. Patient was evaluated in ED and found to have 3 mm calcium oxalate stone located at right UVJ. Patient was given IV hydration, pain medication and admitted renal colic. Urology was consulted and took the patient for cystoscopy with right uretral stent placement. Patient was stabilized and monitored overnight. Patient was instructed to follow up with Dr. Reyes outpatient for evaluation. Patient was given Pain medication and discharged after being hemodynamcially stable for discharge. Discharge planning including medication reconciliation, outpatient follow up and signs and symptoms for return to ED were discussed. See patient chart for full details. - Date & Time of H&P Date of H&P: 07/30/17 Time of H&P: 21:15 Discharge Exam - Head Exam Head Exam: ATRAUMATIC, NORMAL INSPECTION, NORMOCEPHALIC - Eye Exam Eye Exam: EOMI, PERRL - Respiratory Exam Respiratory Exam: Clear to PA & Lateral, NORMAL BREATHING PATTERN - Cardiovascular Exam Cardiovascular Exam: REGULAR RHYTHM, +S1, +S2 - GI/Abdominal Exam GI & Abdominal Exam: Normal Bowel Sounds, Tenderness (right sided flank) - Extremities Exam Extremities exam: normal capillary refill, pedal pulses present - Back Exam Back exam: CVA tenderness (R). absent: CVA tenderness (L) - Neurological Exam Neurological exam: Alert, CN II-XII Intact, Normal Gait, Oriented x3, Reflexes Normal - Psychiatric Exam Psychiatric exam: Normal Affect, Normal Mood - Skin Skin Exam: Dry, Warm Discharge Plan - Discharge Medications Prescriptions: Ibuprofen [Motrin] 400 mg PO Q6H PRN #12 tab PRN Reason: Pain, Moderate (4-7) oxyCODONE/Acetaminophen [Percocet 5/325 mg Tab] 1 tab PO Q6H PRN #8 tab PRN Reason: Bladder Spasm - Follow Up Plan Condition: FAIR Disposition: HOME/ ROUTINE Instructions: Cystoscopy, Kidney Stones (DC), Renal Colic (DC), Ureteral Stent (DC), Renal Colic (DC), Renal Colic (GEN) Additional Instructions: Follow up with Dr. Reyes in his office upon discharge Follow up with [facility], please call [phone] to make an appointment Take medications as prescribed to you, alternating pain medication Take medication with food Return to ED if you experience intractable abdominal pain, persistent fever, headache, nausea, vomiting Referrals: PCP,NO [Primary Care Provider] - Fidel Reyes MD [Staff Provider] - <Millicent Carter - Last Filed: 08/02/17 13:57> Provider - Provider Date of Admission: 07/30/17 20:47 Attending physician: Millicent Carter MD Primary care physician: NO PRIMARY CARE PROVIDER Hospital Course - Lab Results Lab Results: Micro Results 07/30/17 21:13 Urine,Clean Catch Urine Culture - Final No Growth (<1,000 CFU/ML) Most Recent Lab Values WBC 5.1 10^3/ul (4.5-11.0) D 08/01/17 05:45 RBC 3.84 10^6/uL (3.5-6.1) 08/01/17 05:45 Hgb 11.3 g/dL (12.0-16.0) L 08/01/17 05:45 Hct 34.7 % (36.0-48.0) L 08/01/17 05:45 MCV 90.4 fl (80.0-105.0) 08/01/17 05:45 MCH 29.4 pg (25.0-35.0) 08/01/17 05:45 MCHC 32.6 g/dl (31.0-37.0) 08/01/17 05:45 RDW 13.6 % (11.5-14.5) 08/01/17 05:45 Plt Count 168 10^3/uL (120.0-450.0) 08/01/17 05:45 MPV 10.8 fl (7.0-11.0) 08/01/17 05:45 Gran % 49.3 % (50.0-68.0) L 08/01/17 05:45 Lymph % (Auto) 41.6 % (22.0-35.0) H 08/01/17 05:45 Tripp % (Auto) 6.7 % (1.0-6.0) H 08/01/17 05:45 Eos % (Auto) 2.0 % (1.5-5.0) 08/01/17 05:45 Baso % (Auto) 0.4 % (0.0-3.0) 08/01/17 05:45 Gran # 2.52 (1.4-6.5) 08/01/17 05:45 Lymph # (Auto) 2.1 (1.2-3.4) 08/01/17 05:45 Tripp # (Auto) 0.3 (0.1-0.6) 08/01/17 05:45 Eos # (Auto) 0.1 (0.0-0.7) 08/01/17 05:45 Baso # (Auto) 0.02 K/mm3 (0.0-2.0) 08/01/17 05:45 Sodium 145 mmol/L (132-148) 08/01/17 05:45 Potassium 3.7 mmol/L (3.6-5.0) 08/01/17 05:45 Chloride 108 mmol/L (98-107) H 08/01/17 05:45 Carbon Dioxide 27 mmol/L (21-33) 08/01/17 05:45 Anion Gap 14 (10-20) 08/01/17 05:45 BUN 9 mg/dL (7-21) 08/01/17 05:45 Creatinine 0.6 mg/dl (0.7-1.2) L 08/01/17 05:45 Est GFR ( Amer) > 60 08/01/17 05:45 Est GFR (Non-Af Amer) > 60 08/01/17 05:45 Random Glucose 93 mg/dL (70-110) 08/01/17 05:45 Calcium 8.3 mg/dL (8.4-10.5) L 08/01/17 05:45 Magnesium 2.1 mg/dL (1.7-2.2) 07/30/17 18:24 Total Bilirubin 1.1 mg/dL (0.2-1.3) 08/01/17 05:45 AST 62 U/L (14-36) H 08/01/17 05:45 ALT 59 U/L (7-56) H 08/01/17 05:45 Alkaline Phosphatase 89 U/L (38-126) 08/01/17 05:45 Total Protein 6.7 g/dL (5.8-8.3) 08/01/17 05:45 Albumin 3.4 g/dL (3.0-4.8) 08/01/17 05:45 Globulin 3.3 gm/dL 08/01/17 05:45 Albumin/Globulin Ratio 1.0 (1.1-1.8) L 08/01/17 05:45 Lipase 69 U/L (23-300) 07/30/17 18:24 Urine Color Yellow (YELLOW) 07/30/17 18:12 Urine Appearance Sl cloudy (CLEAR) 07/30/17 18:12 Urine pH 6.0 (4.7-8.0) 07/30/17 18:12 Ur Specific [place] >= 1.030 (1.005-1.035) 07/30/17 18:12 Urine Protein Trace mg/dL (<30 mg/dL) H 07/30/17 18:12 Urine Glucose (UA) Negative mg/dL (NEGATIVE) 07/30/17 18:12 Urine Ketones Trace mg/dL (NEGATIVE) H 07/30/17 18:12 Urine Blood Large (NEGATIVE) H 07/30/17 18:12 Urine Nitrate Negative (NEGATIVE) 07/30/17 18:12 Urine Bilirubin Negative (NEGATIVE) 07/30/17 18:12 Urine Urobilinogen 1.0 E.U./dL (<1 E.U./dL) H 07/30/17 18:12 Ur Leukocyte Esterase Negative Agustin/uL (NEGATIVE) 07/30/17 18:12 Urine RBC Tntc /hpf (0-2) 07/30/17 18:12 Urine WBC 5 - 10 /hpf (0-6) 07/30/17 18:12 Ur Epithelial Cells 4 - 5 /hpf (0-5) 07/30/17 18:12 Calcium Oxalate Crystal Small /hpf 07/30/17 18:12 Urine Bacteria Many (NEG) 07/30/17 18:12 Urine Other Fiber 07/30/17 18:12 Urine HCG, Qual Negative (NEGATIVE) 07/30/17 18:12 Attending/Attestation - Attestation I have personally seen and examined this patient.: Yes I have fully participated in the care of the patient.: Yes I have reviewed all pertinent clinical information, including history, physical exam and plan: Yes Notes (Text): 08/02/17 13:54 Medical record note made by the resident after discussion with my direction and input after the patient was personally seen and examined by me. I have reviewed the chart and agree that the record accurately reflects by personal performance of the history, physical exam, data review, and medical decision-making, in the course for the patient. I have also personally directed the plan of care. 46 year old female with pmh of nephrolithiasis with presented to [facility] – [place] Emergency department complaining of right sided abdominal and flank pain. Patient was evaluated in ED and found to have 3 mm calcium oxalate stone located at right UVJ. Patient was treated with IV hydration, pain medication . Urology was consulted and patient underwent cystoscopy with right uretral stent placement.She remained stable after the procedure.She will be discharged home and will follow up with Urology.She has scheduled appointment on 08/02/17 08/02/17 13:55
--- NOTE | 2017-08-10 08:25 | CON ---
DATE: 07/31/2017 UROLOGY CONSULTATION REASON FOR CONSULTATION: Severe renal colic. HISTORY OF PRESENT ILLNESS: Ms. Galvin is a very pleasant lady with a severe renal colic and a stone. See the plans listed below. She came in with flank pain and has a stone that has not yet passed, although see below. I explained . But in the meantime, she is having severe pain and she is also very nauseous, not responding well to medical therapy. PAST MEDICAL AND SURGICAL HISTORY: Listed on the chart. . I do want to mention that we provided a superior court clerk to translate her. REVIEW OF SYSTEMS: Listed above is noncontributory. PHYSICAL EXAMINATION: GENERAL: Well-nourished female, is currently uncomfortable with grimace. VITAL SIGNS: Noted. LUNGS: Clear. HEART: S1 and S2 normal. ABDOMEN: Soft, nontender. PELVIC: Deferred. LABORATORY DATA: CT scan in the chart. DIAGNOSES: Severe renal colic, hydronephrosis, urolithiasis, and hematuria. PLAN: As follows; we discussed the options. At this point, I discussed conservative management versus invasive procedure. . We discussed cystoscopy, stent insertion, cystourethroscopy, laser lithotripsy. We discussed . We are going to plan to proceed now. We are going to bring her to the OR for cysto and stent and then further plan will follow. David Reyes MD
--- NOTE | 2017-08-10 09:03 | OP ---
PROCEDURE DATE: 07/31/2017 PREOPERATIVE DIAGNOSES: Urolithiasis, hematuria, hydronephrosis, severe renal colic. POSTOPERATIVE DIAGNOSIS: Urolithiasis, hematuria, hydronephrosis, severe renal colic. PROCEDURES: Examination under anesthesia, cystoscopy, right retrograde pyelogram, and insertion of right double J-stent. COMPLICATIONS: None. ESTIMATED BLOOD LOSS: Less than 10 mL. At the termination of the procedure, the patient has a double-J stent in the proper location. INDICATIONS FOR PROCEDURE: See history and physical for further details. See the consultation by me. The patient with severe renal colic with an obstructing stone. We discussed the options including observation, basket. We discussed ureteroscopy, laser lithotripsy, but for today we just want to insert a stent. DESCRIPTION OF PROCEDURE: After obtaining informed consent, the patient was placed on the table. Routine monitors were placed. I had a office administration translate and provide information. I explained to the patient we are just placing a stent, not removing the stone, unless it is . We discussed the options and we just wanted to stent the patient today. The patient was placed on the table. Routine monitors were placed. Time-out was called to confirm the patient, positioning. Antibiotic prophylaxis was being used. Cystoscope via urethra, the ureteral orifice identified. Retrograde pyelogram was performed and stone outlined. We then the stone with patient positioning. At this point, we put a wire up to the kidney and we put a double J-stent in. We confirmed the positioning. The patient tolerated well without complications. David Reyes MD
--- NOTE | 2017-08-14 09:43 | PN ---
DATE: 07/31/2017 IMMEDIATE POSTOPERATIVE NOTE See the consultation note, see the operative note. The patient is in the Recovery Room in stable condition. Vital signs are within normal limits. She is status post cystoscopy, right retrograde pyelogram, right stent insertion. DIAGNOSES: Urolithiasis and hematuria and severe renal colic. The patient is feeling much better. Vital signs are within normal limits. PLAN: As follows as mentioned previously, analgesics, screening urine. The patient will require followup of cystoscopy and ureteroscopy, this will be done as arranged as an outpatient. David Reyes MD
--- NOTE | 2017-08-14 16:29 | OP ---
PROCEDURE DATE: 07/31/2017 UROLOGY EMERGENCY OPERATIVE NOTE PREOPERATIVE DIAGNOSES: Urolithiasis, hematuria, hydronephrosis and severe renal colic. POSTOPERATIVE DIAGNOSES: Urolithiasis, hematuria, hydronephrosis and severe renal colic. PROCEDURE: Examination under anesthesia, cystoscopy, a right retrograde pyelogram, and insertion of right double-J stent. COMPLICATIONS: None. BLOOD LOSS: Less than 10 mL. FINDINGS: Hydronephrosis and ureteral stone. INDICATIONS: See history and physical and consultation. In brief, the patient presented with severe renal colic. We discussed options with the patient; we had a circus agent provided for the patient, various options including spontaneous stone passage, including the stent insertion. I explained that today, we are just going to insert the stent to relieve the pressure. The patient will require followup to remove the stent and also to remove the stone. We discussed stone basketing, we discussed laser lithotripsy, we discussed shock wave lithotripsy. As discussed, the only option the patient needed is the above procedure. urology, operative findings. Procedure proceeded well without complications. See the body of the report below. DESCRIPTION OF PROCEDURE: After obtaining informed consent, patient was placed on the table. Routine monitors were placed. Time-out was called to confirm the patient and consent. Antibiotic were being used. Cystoscope introduced via urethra. Brush Material Preparer films were performed, entire procedure done with fluoroscopic imaging and saved images as well as under the camera. We identified the ureteral orifice and we injected contrast and did a retrograde pyelogram identifying the stone and hydronephrosis. There is a significant amount of hydronephrosis noted. Wire was passed up to the kidney with a little difficulty, the stone is somewhat impacted. With careful stone manipulation, we were able to get the wire up to the kidney. Once we did so, we were able to insert a double J stent. At the conclusion of the procedure, we have a well-placed double-J stent. There were no complications. Patient tolerated the procedure without complication. See the postop note. The plans would be for followup ureteroscopy, laser lithotripsy off of the stone and further plans will follow. David Reyes MD
--- NOTE | 2017-08-14 16:32 | CON ---
DATE: 07/31/2017 UROLOGY CONSULTATION REASON FOR CONSULTATION: Severe renal colic. HISTORY OF PRESENT ILLNESS: This is a very pleasant 46-year-old lady who presents with severe right renal colic. It is secondary to a distal ureteral stone and Urology was consulted regarding further recommendations. The patient has ongoing pain right now. She has not passed a stone yet. Discussed ways to draining the urine. PAST MEDICAL AND SURGICAL HISTORY: As listed on the chart. REVIEW OF SYSTEMS: Listed above. Otherwise, noncontributory. No weight loss, chest pain or shortness of breath. . SOCIAL HISTORY: She has a , who is here at the bedside. We had a chance also to speak with him as well. PHYSICAL EXAMINATION: GENERAL: A well-nourished female. She is currently resting comfortably. VITAL SIGNS: Within normal limits. LUNGS: Clear. HEART: Normal S1 and S2. ABDOMEN: Overall, soft, nontender. No flank mass appreciated. no real pelvic or rectal masses. DATA: Labs, see chart. CT scan, see chart. The CT scan again shows a stone, hydronephrosis. Other than remarkable, the remainder of the CT is otherwise unremarkable. So, the final diagnosis is severe renal colic. Patient is having ongoing pain. At this point, we discussed various options with the patient and her by way of the automobile repair service estimator. After discussing both options, the plan is for immediate cystoscopy. We are going to place the stent. I explained that depending on the location of the stone, most likely they will not be touching the stone. At this point, we just want to drain the kidney. Then, further plans will follow, most likely require a second procedure. All of this was explained to the patient in great detail. We explained options. We discussed the possibility for observation and allowing the stone to pass. We discussed the possibility for today either ureteroscopy or lithotripsy. All depend on what we do, but the expectation for today from my standpoint is that we will try for stent, the patient will obviously feel better and then, once she will get better, I will treat her with antibiotics and then, subsequently we will go and return to the OR and remove the stones. We also discussed the possibility for shock wave lithotripsy. Many possibilities were discussed. After discussing all those possibilities, the patient was examined and the plan is to go to the OR. DIAGNOSES: Severe renal colic. The plan is as follows: Patient to the OR for immediate cystoscopy, retrograde pyelogram, insertion of the double J-stent and then, further plans will follow. Antibiotics will be used as well. Thank you for the Urology consultation. David Reyes MD
== END 2017-08-01 16:21 | disposition home or self-care (01) ==
LOC: ED 17:27 → ERH 20:47 → 3RSO 21:26
PROVIDERS: ADMIT Internal Medicine; ATTEND Internal Medicine
DX: N13.2 Hydronephrosis with renal and ureteral calculous obstruction (principal); R31.9 Hematuria, unspecified; K57.30 Diverticulosis of large intestine without perforation or abscess without bleeding
CPT/HCPCS: 36415; 52332; 74177; 76000; 80053; 81001; 83690; 83735; 84703; 85025; 87086; 93005; 96372; 96374; 96375; 96376; 99285; C1758; C1769; C2625; C9113; G0378; J0696; J1644; J1885; J2270; J2405; J2704; J3010; J7030; J7040; J7120; Q9966; Q9967

== ENCOUNTER 2017-09-06 21:21 | Emergency (ER) | payer SELFPAY ==
[2017-09-06 21:34] VITALS: BMI 24.1
[2017-09-06 21:52] VITALS: RESP 18
[2017-09-06] MEDS ORDERED: Sodium Chloride 0.9% 1,000 ML IV STA (21:52)
[2017-09-06 22:27] LABS: BASO # 0.02 K/mm3 (0.0-2.0); BASO % 0.3 % (0.0-3.0); GRAN # 5.87 (1.4-6.5); GRAN % 78.1 % (50.0-68.0); HEMOGLOBIN 13.3 g/dL (12.0-16.0); LYMPH % 13.2 % (22.0-35.0); MEAN CELL VOLUME 86.9 fl (80.0-105.0); MEAN CORPUSCULAR HGB CONC 34.5 g/dl (31.0-37.0); MEAN PLATELET VOLUME 9.8 fl (7.0-11.0); MONO # 0.6 (0.1-0.6); MONO % 8.4 % (1.0-6.0); RBC 4.44 10^6/uL (3.5-6.1); RED CELL DISTRIBUTION WIDTH 13.7 % (11.5-14.5); WHITE BLOOD COUNT 7.5 10^3/ul (4.5-11.0)
[2017-09-06 22:35] LABS: VENOUS BLOOD GAS BASE EXCESS 1.4 mmol/L (0.0-2.0); VENOUS BLOOD GAS PO2 111 mm/Hg (30-55); VENOUS BLOOD PH 7.46 (7.32-7.43)
[2017-09-06 22:38] LABS: URINE APPEARANCE SLIGHT-CLOUDY (CLEAR); URINE BILIRUBIN NEGATIVE (NEGATIVE); URINE BLOOD LARGE (NEGATIVE); URINE COLOR LIGHT YELLOW (YELLOW); URINE GLUCOSE (UA) NEGATIVE (NEGATIVE); URINE LEUKOCYTE ESTERASE MODERATE Leu/uL (NEGATIVE); URINE PROTEIN TRACE mg/dL (<30 mg/dL)
--- NOTE | 2017-09-06 22:39 | ED PDOC ---
Arrival/HPI <Vinay Garcia - Last Filed: 09/07/17 00:15> - General Historian: Patient <Stevan Owens - Last Filed: 09/07/17 01:34> - General Chief Complaint: Abdominal Pain Time Seen by Provider: 09/06/17 21:37 - History of Present Illness Narrative History of Present Illness (Text): 09/06/17 22:15 46yo female with no pmhx who present with complaint of fever, generalized bodyache, suprapubic abdominal pain and decrease appetite. States she took Tylenol this morning. The by the bedside states patient had stent placed here on July 31 for renal colic and is suppose to take it out on Monday. The states they spoke with the Urologist, Dr reyes earlier today and was told to go to the ED if fever persist. She denies nausea, vomiting , diarrhea, constipation, chest pain, SOB, diaphoresis, any other complaint. ( Stevan Owens A) Past Medical History - Provider Review Nursing Documentation Reviewed: Yes - Cardiac Hx Cardiac Disorders: No - Pulmonary Hx Respiratory Disorders: No - Neurological Hx Neurological Disorder: No - HEENT Hx HEENT Disorder: No - Renal Hx Kidney Stones: Yes - Endocrine/Metabolic Hx Endocrine Disorders: No - Hematological/Oncological Hx Blood Disorders: No - Integumentary Hx Dermatological Disorder: No - Musculoskeletal/Rheumatological Hx Musculoskeletal Disorders: No - Gastrointestinal Hx Gastrointestinal Disorders: No - Genitourinary/Gynecological Hx Genitourinary Disorders: No - Psychiatric Hx Psychophysiologic Disorder: No Hx Substance Use: No - Past Surgical History Past Surgical History: Non-Contributing - Anesthesia Hx Anesthesia: No Hx Anesthesia Reactions: No Hx Malignant Hyperthermia: No <Stevan Owens - Last Filed: 09/07/17 01:34> Family/Social History - Physician Review Nursing Documentation Reviewed: Yes Family/Social History: Unknown Family HX Smoking Status: Never Smoked Hx Alcohol Use: No Hx Substance Use: No <Stevan Owens - Last Filed: 09/07/17 01:34> Allergies/Home Meds <Vinay Garcia - Last Filed: 09/07/17 00:15> <Stevan Owens A - Last Filed: 09/07/17 01:34> Allergies/Adverse Reactions: Allergies No Known Allergies Allergy (Verified 09/06/17 21:37) Review of Systems - Physician Review All systems were reviewed & negative as marked: Yes - Review of Systems Constitutional: Fevers Eyes: Normal ENT: Normal Respiratory: Normal Cardiovascular: Normal Gastrointestinal: Abdominal Pain. absent: Constipation, Diarrhea, Nausea, Vomiting, Hematochezia, Hematemesis Genitourinary Female: Normal Musculoskeletal: Normal Skin: Normal Neurological: Normal Endocrine: Normal Hemo/Lymphatic: Normal Psychiatric: Normal <Diru,Happiness A - Last Filed: 09/07/17 01:34> Physical Exam Vital Signs Reviewed: Yes Temperature: Febrile Blood Pressure: Normal Pulse: Tachycardic Respiratory Rate: Normal Appearance: Positive for: Well-Appearing, Non-Toxic, Comfortable Pain Distress: None Mental Status: Positive for: Alert and Oriented X 3 - Systems Exam Head: Present: Atraumatic, Normocephalic Pupils: Present: PERRL Extroacular Muscles: Present: EOMI Conjunctiva: Present: Normal Mouth: Present: Moist Mucous Membranes Neck: Present: Normal Range of Motion Respiratory/Chest: Present: Clear to Auscultation, Good Air Exchange. No: Respiratory Distress, Accessory Muscle Use Cardiovascular: Present: Regular Rate and Rhythm, Normal S1, S2. No: Murmurs Abdomen: Present: Other (Soft). No: Tenderness, Distention, Peritoneal Signs, Rebound, Guarding, McBurney's Point Tender, Rovsing's Sign Present Back: Present: Normal Inspection Upper Extremity: Present: Normal Inspection. No: Cyanosis, Edema Lower Extremity: Present: Normal Inspection. No: Edema Neurological: Present: GCS=15, CN II-XII Intact, Speech Normal Skin: Present: Warm, Dry, Normal Color. No: Rashes Psychiatric: Present: Alert, Oriented x 3, Normal Insight, Normal Concentration <Diru,Happiness A - Last Filed: 09/07/17 01:34> Vital Signs Temp Pulse Resp BP Pulse Ox 09/07/17 00:00 98.7 F 96 H 18 117/72 100 09/06/17 23:10 98.7 F 96 H 09/06/17 22:04 100.3 F H 09/06/17 21:42 100.3 F H 121 H 18 113/69 97 Medical Decision Making <Vinay Garcia - Last Filed: 09/07/17 00:15> <Diru,Happiness A - Last Filed: 09/07/17 01:34> ED Course and Treatment: 09/07/17 01:31 PT in ED for stated history. Her temp improved in ED with medication and hydration. She had no leukocytosis and lactic acid was wnl. UTI was noted and pt was treated with a gram of Rocephin in ED. CXR NAD Case was DW Dr. Reyes and he recommends that pt be DC home to f/u with him as per thy scheduled appointment for Monday. All result and plan was DW both pt and the who translated. Keflex 500mg rx was given. (Stevan Owens) - Lab Interpretations Lab Results: 09/06/17 22:00 09/06/17 22:41 Lab Results 09/06/17 22:41: Sodium 137, Chloride 105, Potassium 3.2 L, Carbon Dioxide 21, Anion Gap 14, BUN 8, Creatinine 0.6 L, Est GFR ( Amer) > 60, Est GFR (Non -Af Amer) > 60, Random Glucose 110, Calcium 8.2 L, Phosphorus 2.4 L, Magnesium 2.0, Total Bilirubin 1.5 H, AST 67 H, ALT 61 H, Alkaline Phosphatase 107, Total Protein 7.2, Albumin 3.7, Globulin 3.6, Albumin/Globulin Ratio 1.0 L 09/06/17 22:25: Urine Color Light yellow, Urine Appearance Slight-cloudy, Urine pH 7.0, Ur Specific Addison <= 1.005, Urine Protein Trace H, Urine Glucose (UA) Negative, Urine Ketones Negative, Urine Blood Large H, Urine Nitrate Negative, Urine Bilirubin Negative, Urine Urobilinogen 2.0 H, Ur Leukocyte Esterase Moderate H, Urine RBC 1 - 3, Urine WBC 2 - 5, Ur Epithelial Cells 6 - 8, Urine Bacteria Mod 09/06/17 22:00: pO2 111 H, VBG pH 7.46 H, VBG pCO2 35.0 L, VBG HCO3 24.9, VBG Total CO2 26.0, VBG O2 Sat (Calc) 99.2 H, VBG Base Excess 1.4, VBG Potassium 4.2 , Sodium 134.0, Chloride 103.0, Glucose 121 H, Lactate 1.0, FiO2 21.0, Venous Blood Potassium 4.2 09/06/17 22:00: PT 15.1 H, INR 1.32 H, APTT 31.2 09/06/17 22:00: WBC 7.5 D, RBC 4.44, Hgb 13.3 D, Hct 38.6, MCV 86.9 D, MCH 30.0, MCHC 34.5, RDW 13.7, Plt Count 162, MPV 9.8, Gran % 78.1 H, Lymph % (Auto ) 13.2 L, Harlan % (Auto) 8.4 H, Eos % (Auto) 0.0 L, Baso % (Auto) 0.3, Gran # 5.87, Lymph # (Auto) 1.0 L, Harlan # (Auto) 0.6, Eos # (Auto) 0.0, Baso # (Auto) 0.02 - RAD Interpretation Radiology Orders: 09/06/17 21:49 CHEST PORTABLE [RAD] Stat - Medication Orders Current Medication Orders: Discontinued Medications Acetaminophen (Tylenol 325mg Tab) 975 mg PO ONCE STA Stop: 09/06/17 21:50 Last Admin: 09/06/17 22:04 Dose: 975 mg MAR Pain/Vitals Document 09/06/17 22:04 AD (Rec: 09/06/17 22:05 AD [id number]) Vitals Temperature (97.6 F-99.6 F) 100.3 F Temperature Source Oral Sodium Chloride (Sodium Chloride 0.9%) 1,000 mls @ 999 mls/hr IV .Q1H1M STA Stop: 09/06/17 22:52 Last Admin: 09/06/17 22:19 Dose: 999 mls/hr eMAR Start Stop Document 09/06/17 22:19 AD (Rec: 09/06/17 22:20 AD [id number]) Intravenous Solution Start Date 09/06/17 Start Time 22:00 Ceftriaxone Sodium (Rocephin 1 Gram Ivpb) 1 gm in 100 mls @ 200 mls/hr IVPB STAT STA PRN Reason: Protocol Stop: 09/06/17 23:29 Last Admin: 09/06/17 23:13 Dose: 200 mls/hr eMAR Start Stop Document 09/06/17 23:13 AD (Rec: 09/06/17 23:13 AD [id number]) Intravenous Solution Start Date 09/06/17 Start Time 23:13 Potassium Chloride (K-Dur 20 Meq Er Tab) 40 meq PO STAT STA Stop: 09/06/17 23:12 Last Admin: 09/06/17 23:22 Dose: 40 meq - PA / CHEF GERMAN / Resident Statement / has reviewed & agrees with the documentation as recorded. <Vinay Garcia - Last Filed: 09/07/17 00:15> Disposition/Present on Arrival <Vinay Garcia - Last Filed: 09/07/17 00:15> - Present on Arrival Any Indicators Present on Arrival: No History of DVT/PE: No History of Uncontrolled Diabetes: No Urinary Catheter: No History of Decub. Ulcer: No History Surgical Site Infection Following: None - Disposition Have Diagnosis and Disposition been Completed?: Yes Disposition Time: 11:45 Patient Plan: Discharge <Stevan Owens - Last Filed: 09/07/17 01:34> - Disposition Diagnosis: Urinary tract infection, Fever Disposition: HOME/ ROUTINE Condition: STABLE Discharge Instructions (ExitCare): Urinary Tract Infections in Adults, Fever, Adult (DC) Additional Instructions: Follow up with Urologist, Dr. reyes Take your medication as directed and drink plenty of fluid Return to ED for any new or worsening symptoms Prescriptions: Cephalexin [Keflex] 500 mg PO QID #28 capsule Referrals: Fidel Reyes MD [Staff Provider] - Follow up with primary Forms: [employer] (Citizen Of [place])
[2017-09-06 22:41] LABS: INR 1.32 (0.93-1.08); PARTIAL THROMBOPLASTIN TIME 31.2 Seconds (25.1-36.5); PROTHROMBIN TIME 15.1 SECONDS (9.4-12.5)
[2017-09-06 22:44] LABS: URINE BACTERIA MOD (NEG)
[2017-09-06] MEDS ORDERED: cefTRIAXone 1 gm 1 GM/100 ML BAG IVPB STA (23:00)
[2017-09-06 23:03] LABS: ALBUMIN 3.7 g/dL (3.0-4.8); ALT/SGPT 61 U/L (7-56); AST/SGOT 67 U/L (14-36); BLOOD UREA NITROGEN 8 mg/dL (7-21); CALCIUM 8.2 mg/dL (8.4-10.5); GFR AFRICAN-AMERICAN > 60; GFR NON-AFRICAN AMERICAN > 60
[2017-09-06 23:11] VITALS: PULSE 96; TEMP 98.7
[2017-09-06] MEDS ORDERED: Potassium Chloride 20 mEq ER Tab PO STA (23:11)
[2017-09-07 01:03] VITALS: O2SAT 100
[2017-09-07 01:05] VITALS: BP 117/72
--- NOTE | 2017-09-07 09:13 | RAD ---
Date of service: 09/06/2017 HISTORY: fever COMPARISON: No prior. FINDINGS: LUNGS: No active pulmonary disease. PLEURA: No significant pleural effusion identified, no pneumothorax apparent. CARDIOVASCULAR: Normal. OSSEOUS STRUCTURES: No significant abnormalities. VISUALIZED UPPER ABDOMEN: Normal. OTHER FINDINGS: None. IMPRESSION: No active disease.
== END 2017-09-07 | disposition home or self-care (01) ==
LOC: ED 21:21
DX: N39.0 Urinary tract infection, site not specified (principal); R50.9 Fever, unspecified
CPT/HCPCS: 71045; 80053; 81001; 82803; 83735; 84100; 85025; 85610; 85730; 87040; 87086; 87181; 99283; J0696; J7030

== ENCOUNTER 2017-09-11 13:39 | Observation (INO) | payer OTHER ==
[2017-09-11 14:16] VITALS: BMI 27.3
--- NOTE | 2017-09-11 15:35 | ED PDOC ---
Arrival/HPI - General Chief Complaint: Abdominal Pain Time Seen by Provider: 09/11/17 14:51 Historian: Patient - History of Present Illness Narrative History of Present Illness (Text): 09/11/17 15:32 A 46 year old female, whose past medical history includes nephrolithiasis, presents to the emergency department for the removal of a kidney stent. Patient states that she was seen last week and had the stent placed by Dr. Reyes. Patient notes that she continues to experience lower abdominal pain. The patient denies fevers, chills, headache, dizziness, sore throat, cough, chest pain, shortness of breath, dyspnea on exertion, nausea, vomiting, diarrhea, neck /back pain, urinary/bowel changes or any other complaint. PMD: None Urologist: Dr. Reyes Time/Duration: Prior to Arrival Symptom Onset: Sudden Symptom Course: Unchanged Activities at Onset: Rest, Light Context: Home Past Medical History - Provider Review Nursing Documentation Reviewed: Yes - Cardiac Hx Cardiac Disorders: No - Pulmonary Hx Respiratory Disorders: No - Neurological Hx Neurological Disorder: No - HEENT Hx HEENT Disorder: No - Renal Hx Kidney Stones: Yes - Endocrine/Metabolic Hx Endocrine Disorders: No - Hematological/Oncological Hx Blood Disorders: No - Integumentary Hx Dermatological Disorder: No - Musculoskeletal/Rheumatological Hx Musculoskeletal Disorders: No - Gastrointestinal Hx Gastrointestinal Disorders: No - Genitourinary/Gynecological Hx Genitourinary Disorders: No - Psychiatric Hx Psychophysiologic Disorder: No Hx Substance Use: No - Past Surgical History Past Surgical History: Non-Contributing - Anesthesia Hx Anesthesia: No Hx Anesthesia Reactions: No Hx Malignant Hyperthermia: No Family/Social History - Physician Review Nursing Documentation Reviewed: Yes Family/Social History: No Known Family HX Smoking Status: Never Smoked Hx Alcohol Use: No Hx Substance Use: No Allergies/Home Meds Allergies/Adverse Reactions: Allergies No Known Allergies Allergy (Verified 09/11/17 14:19) Review of Systems - Physician Review All systems were reviewed & negative as marked: Yes - Review of Systems Constitutional: absent: Fevers, Night Sweats ENT: absent: Sore Throat Respiratory: absent: SOB, Cough Cardiovascular: absent: Chest Pain, YEBOAH Gastrointestinal: Abdominal Pain (Lower abdominal pain.). absent: Stool Changes , Diarrhea, Nausea, Vomiting Genitourinary Female: Other (Kidney stent removal) Musculoskeletal: absent: Back Pain, Neck Pain Neurological: absent: Headache, Dizziness Physical Exam Vital Signs Reviewed: Yes Vital Signs Temp Pulse Resp BP Pulse Ox 09/11/17 16:57 60 18 113/73 100 09/11/17 14:17 98 F 68 18 96/58 L 98 Temperature: Afebrile Blood Pressure: Hypotensive Pulse: Regular Respiratory Rate: Normal Appearance: Positive for: Well-Appearing, Non-Toxic, Comfortable Pain Distress: None Mental Status: Positive for: Alert and Oriented X 3 - Systems Exam Head: Present: Atraumatic, Normocephalic Pupils: Present: PERRL Extroacular Muscles: Present: EOMI Conjunctiva: Present: Normal Mouth: Present: Moist Mucous Membranes Neck: Present: Normal Range of Motion Respiratory/Chest: Present: Clear to Auscultation, Good Air Exchange. No: Respiratory Distress, Accessory Muscle Use Cardiovascular: Present: Regular Rate and Rhythm, Normal S1, S2. No: Murmurs Abdomen: Present: Tenderness (right lower abdomen). No: Distention, Peritoneal Signs Back: Present: Normal Inspection. No: CVA Tenderness Upper Extremity: Present: Normal Inspection. No: Cyanosis, Edema Lower Extremity: Present: Normal Inspection. No: Edema Neurological: Present: GCS=15, CN II-XII Intact, Speech Normal Skin: Present: Warm, Dry, Normal Color. No: Rashes Psychiatric: Present: Alert, Oriented x 3, Normal Insight, Normal Concentration Medical Decision Making ED Course and Treatment: 09/11/17 15:44 Impression: A 46 year old female presents to the emergency department for kidney stent removal by Dr. Reyes. Differential Diagnosis included but are not limited to: Stent removal by Dr. Reyes Plan: -- Abdominal Ultrasound -- Labs -- Urinalysis -- Reassess and disposition Progress Notes: 09/11/17 15:15: Cased discussed in detail with Dr. Reyes who will come and see patient. 09/11/17 17:19 Dr. Reyes came to evaluate patient and he will take patient for a procedure. He would like IV antibiotics as well. - Lab Interpretations Lab Results: 09/11/17 15:50 09/11/17 15:50 Lab Results 09/11/17 15:50: PT 12.3, INR 1.08, APTT 34.5 09/11/17 15:50: Sodium 141, Potassium 3.6, Chloride 102, Carbon Dioxide 29, Anion Gap 13, BUN 9, Creatinine 0.5 L, Est GFR ( Amer) > 60, Est GFR (Non -Af Amer) > 60, Random Glucose 87, Calcium 8.6, Total Bilirubin 0.9, AST 30, ALT 37, Alkaline Phosphatase 103, Total Protein 7.3, Albumin 3.7, Globulin 3.6, Albumin/Globulin Ratio 1.0 L 09/11/17 15:50: Urine Color Dark brown, Urine Appearance Turbid, Urine pH 6.5, Ur Specific Edison >= 1.030, Urine Protein >=300 H, Urine Glucose (UA) Negative , Urine Ketones Trace H, Urine Blood Large H, Urine Nitrate Negative, Urine Bilirubin Negative, Urine Urobilinogen 0.2, Ur Leukocyte Esterase Small H, Urine RBC Tntc, Urine WBC 5 - 10, Ur Epithelial Cells 6 - 8 09/11/17 15:50: WBC 5.3 D, RBC 3.65, Hgb 10.8 L D, Hct 32.2 L, MCV 88.2, MCH 29.6, MCHC 33.5, RDW 13.2, Plt Count 219, MPV 9.5, Gran % 52.8, Lymph % (Auto) 38.3 H, Vernon % (Auto) 6.6 H, Eos % (Auto) 1.7, Baso % (Auto) 0.6, Gran # 2.80, Lymph # (Auto) 2.0, Vernon # (Auto) 0.4, Eos # (Auto) 0.1, Baso # (Auto) 0.03 I have reviewed the lab results: Yes - Medication Orders Current Medication Orders: Ceftriaxone Sodium (Rocephin 1 Gram Ivpb) 1 gm in 100 mls @ 200 mls/hr IVPB STAT STA PRN Reason: Protocol Stop: 09/11/17 17:46 - Scribe Statement The provider has reviewed the documentation as recorded by the Scribe Vero Jenkins Provider Scribe Attestation: All medical record entries made by the Scribe were at my direction and personally dictated by me. I have reviewed the chart and agree that the record accurately reflects my personal performance of the history, physical exam, medical decision making, and the department course for this patient. I have also personally directed, reviewed, and agree with the discharge instructions and disposition. Disposition/Present on Arrival - Present on Arrival Any Indicators Present on Arrival: No History of DVT/PE: No History of Uncontrolled Diabetes: No Urinary Catheter: No History of Decub. Ulcer: No History Surgical Site Infection Following: None - Disposition Have Diagnosis and Disposition been Completed?: Yes Diagnosis: Encounter for removal of ureteral stent, UTI (urinary tract infection) Disposition Time: 17:20 Patient Plan: Admission Condition: FAIR Forms: [employer] (Ind[place]ian)
[2017-09-11 16:05] LABS: BASO # 0.03 K/mm3 (0.0-2.0); BASO % 0.6 % (0.0-3.0); EOS # 0.1 (0.0-0.7); EOS % 1.7 % (1.5-5.0); GRAN # 2.8 (1.4-6.5); GRAN % 52.8 % (50.0-68.0); HEMOGLOBIN 10.8 g/dL (12.0-16.0); LYMPH % 38.3 % (22.0-35.0); MEAN CELL VOLUME 88.2 fl (80.0-105.0); MEAN CORPUSCULAR HEMOGLOBIN 29.6 pg (25.0-35.0); MEAN CORPUSCULAR HGB CONC 33.5 g/dl (31.0-37.0); MEAN PLATELET VOLUME 9.5 fl (7.0-11.0); MONO # 0.4 (0.1-0.6); MONO % 6.6 % (1.0-6.0); RBC 3.65 10^6/uL (3.5-6.1); RED CELL DISTRIBUTION WIDTH 13.2 % (11.5-14.5); WHITE BLOOD COUNT 5.3 10^3/ul (4.5-11.0)
[2017-09-11 16:08] LABS: PH,URINE 6.5 (4.7-8.0); URINE BILIRUBIN NEGATIVE (NEGATIVE); URINE BLOOD LARGE (NEGATIVE); URINE GLUCOSE (UA) NEGATIVE (NEGATIVE); URINE LEUKOCYTE ESTERASE SMALL Leu/uL (NEGATIVE); URINE PROTEIN >=300 mg/dL (<30 mg/dL); URINE UROBILINOGEN 0.2 E.U./dL (<1 E.U./dL)
[2017-09-11 16:09] LABS: URINE APPEARANCE TURBID (CLEAR); URINE COLOR DARK BROWN (YELLOW)
[2017-09-11 16:10] LABS: URINE RBC TNTC /hpf (0-2)
[2017-09-11 16:21] LABS: ALBUMIN 3.7 g/dL (3.0-4.8); ALT/SGPT 37 U/L (7-56); AST/SGOT 30 U/L (14-36); BLOOD UREA NITROGEN 9 mg/dL (7-21); CALCIUM 8.6 mg/dL (8.4-10.5); GFR AFRICAN-AMERICAN > 60; GFR NON-AFRICAN AMERICAN > 60
[2017-09-11 17:00] LABS: INR 1.08
[2017-09-11] MEDS ORDERED: cefTRIAXone 1 gm 1 GM/100 ML BAG IVPB STA (17:17)
[2017-09-12] MEDS ORDERED: Propofol 10 mg/ml Inj (20 ML) ONE (16:22)
[2017-09-12] MEDS ORDERED: Midazolam 2 MG/2 ML VIAL ONE (16:23)
[2017-09-12] MEDS ORDERED: cefTRIAXone (Rocephin) 1 gm Inj ONE (16:24)
[2017-09-12] MEDS ORDERED: Iohexol 240 (50 ml) ONE (16:25)
[2017-09-12] MEDS ORDERED: HYDROmorphone 0.5 mg/0.5 ml ISec IVP PRN (17:26)
[2017-09-12] MEDS ORDERED: Lactated Ringer's 1,000 ML IV SCH (17:30)
[2017-09-12 22:48] VITALS: TEMP 98
--- NOTE | 2017-09-13 03:43 | HP ---
Copied To: David Reyes MD Attending MD: David Reyes MD UROLOGY EMERGENCY ADMISSION REASON FOR EMERGENCY ADMISSION: Kidney stone treatment. HISTORY OF PRESENT ILLNESS: Ms. Ganesh Obrien is a pleasant, but extremely noncompliant lady, who is now in the ER and we are going to admit her because she had a stent placed a long time ago for a severe renal colic at that time; since then, I have talked to her 10 times to try to ask her to come in for followup treatments. Even now she presents to the ER thinking that she is having her catheter removed, and it is the word that she uses. I have explained it is not a catheter, it is a stent. I have explained that in case it has been removed, that we need to get the stones out. I have discussed this with her at length. So at this point, I am going to admit her and I am going to try to put her on the schedule for today; if not today, we will get her on for tomorrow. But it is an emergency admission, it is nothing else because it is becoming too long that she has had a stent in place. PAST MEDICAL AND SURGICAL HISTORY: As listed on the chart. No history of an NH or CVA. SOCIAL HISTORY: Essentially unremarkable. She has come to the office with her . REVIEW OF SYSTEMS: As listed above. Other than the discomfort from the stent, she is otherwise stable. MEDICATIONS: See chart. PHYSICAL EXAMINATION GENERAL: Well-nourished female, in no apparent distress. She is currently resting comfortably in the gurney. LUNGS: Clear. HEART: Normal S1 and S2. ABDOMEN: Overall soft and nontender. No real CVA tenderness. PELVIC: Very tenesmic cysto. No pelvic or rectal masses. LABORATORY DATA: See chart. DIAGNOSES: Hematuria, urolithiasis, severe renal colic intermittently. IMPRESSION AND PLAN: We initially placed a stent. I have been calling the patient. I have tried making arrangements for followup. On several different medications, I have offered to have options. I have offered even getting a second opinion, but just do something to get the stent out. I explained the risk of leaving the stent in for too long and getting encrusted. At this point, she is going to be here in the hospital. We are going to bring the patient as an emergency. We are going to try and bring her to the OR today. If not today, we will do it tomorrow. So the plan is as follows; 1. Cysto. 2. Ureteroscopy. 3. Laser lithotripsy with stone basketing. 4. Further plans to follow. All this have been explained to the patient in Welsh with translation. David Reyes MD
[2017-09-13 07:38] VITALS: BP 89/55; PULSE 66; RESP 18; O2SAT 96
--- NOTE | 2017-09-13 09:42 | RAD ---
Date of service: 09/12/2017 PROCEDURE: Fluoroscopy up to 1 hour HISTORY: STENT REMOVAL /INSERTION / RETROGRADE PYELOGRAM/( RIGHT) COMPARISON: TECHNIQUE: 9.6 seconds of fluoro time. 4.32 mGy cumulative dose. FINDINGS: There is placement of a right ureteral stent IMPRESSION: As above
[2017-09-13 14:30] LABS: PARTIAL THROMBOPLASTIN TIME 34.5 Seconds (25.1-36.5); PROTHROMBIN TIME 12.3 SECONDS (9.4-12.5)
--- NOTE | 2017-09-20 09:58 | PN ---
Copied To: David Reyes MD Attending MD: David Reyes MD DATE: 09/20/2017 IMMEDIATE POSTOP NOTE SUBJECTIVE: See the operative note, see history and physical. We brought the patient in emergency for treatment of a stone. We have now removed the stent and did ureteroscopy, see the operative note. The patient is in . Given the hour and the lateness of the hour, I offered the patient to go home and actually she requested to go home and I wrote a discharge order. When asked the surgeon's thought, apparently she is going to take her tomorrow and then further plans will follow. David Reyes MD
--- NOTE | 2017-09-20 13:20 | PN ---
Copied To: David Reyes MD Attending MD: David Reyes MD DATE: 09/13/2017 UROLOGY DAILY PROGRESS NOTE See the history and physical, see the operative note, see the immediate postoperative note. Today, we removed the drain. The patient is still in the hospital. She wants to go home, we are discharging her home this morning. PAST MEDICAL AND SURGICAL HISTORY: No other changes. PHYSICAL EXAMINATION: No change. Today, at the bedside, I removed the stent without difficulty. I also would like the patient to keep the stent. The patient tolerated this well. She will be discharged home on antibiotics, Flomax, Motrin, and then further plans as an outpatient. I encouraged the patient followup; so far, she has been extremely noncompliant, we have done this in [place]. Hopefully, she will come back for a followup appointment. David Reyes MD
--- NOTE | 2017-09-20 15:29 | OP ---
Copied To: David Reyes MD Attending MD: David Reyes MD PROCEDURE DATE: 09/12/2017 UROLOGY OPERATIVE NOTE PREOPERATIVE DIAGNOSES: Urolithiasis, hematuria, hydronephrosis, severe renal colic, stone disease. POSTOPERATIVE DIAGNOSES: Urolithiasis, hematuria, hydronephrosis, severe renal colic, stone disease. PROCEDURE: Exam under anesthesia consistent with cystoscopy, removal of a double J stent, a right ureteroscopy and insertion of right double-J stent. COMPLICATIONS: There are no complications. FINDINGS: 1. The stent itself is fairly encrusted. 2. No stone fragment that are removed from the stent are noted. 3. In the ureter itself there are no big pieces of stones remaining. 4. Specimen sent. INDICATIONS: See history and physical for the details. A very pleasant lady, but extremely noncompliant. She received several phone calls asking her to come back and to get treated for her stone disease. We have placed a stent for a hydronephrosis, severe renal colic at that time. After the much discussion with the patient, finally she agreed to the above-listed procedure. DESCRIPTION OF PROCEDURE: After obtaining informed consent, the patient was placed on the table. Routine monitor was placed. Time-out was called to confirm the patient's positioning. We introduced the cystoscope via the urethra. We identified the old stent. It is extremely encrusted. We subsequently put a wire up to the kidney. We got adjacent to that wire. We identified tremendous amount of stone debris in the ureter. But nothing significant size that needs to be lasered. It is all relatively small. Basically, we put a new stent in. With new stent in place was tangled that we will be able to remove nice and quickly. The patient overall tolerated the procedure well without complication. David Reyes MD
== END 2017-09-13 12:21 | disposition home or self-care (01) ==
LOC: ED 13:39 → SDS 16:00 → ERH 17:17 → 5RSO 18:28
PROVIDERS: ADMIT Urology; ATTEND Urology
DX: N20.9 Urinary calculus, unspecified (principal); N23 Unspecified renal colic; N39.0 Urinary tract infection, site not specified; Z87.442 Personal history of urinary calculi; Z91.19 Patient's noncompliance with other medical treatment and regimen; I10 Essential (primary) hypertension
CPT/HCPCS: 52332; 80053; 81001; 85025; 85610; 85730; 87040; 87086; 88300; 99284; C2625; G0378; J0696; J2250; J2704; J3010; J7030; Q9966